=== PATIENT | female | born 1975 | race Caucasian/White ===

== ENCOUNTER 2023-07-06 04:25 | Day surgery (SDC) | payer OTHER ==
[2023-07-04 10:33] VITALS: BMI 26.6
[2023-07-06 08:38] VITALS: TEMP 97.1
[2023-07-06 09:07] VITALS: BP 104/68; PULSE 69; RESP 20
== END 2023-07-06 09:07 | disposition home or self-care (01) ==
LOC: JASU-ENDO 04:25
PROVIDERS: ATTEND Internal Medicine Gastroenterology
PROC: 0DBL8ZX Excision of Transverse Colon, Via Natural or Artificial Opening Endoscopic, Diagnostic (ICD-10-PCS; principal; 2023-07-06 08:00)
DX: Z12.11 Encounter for screening for malignant neoplasm of colon (principal); K63.5 Polyp of colon; K64.8 Other hemorrhoids
CPT/HCPCS: 81025; 88305-TC